=== PATIENT | male | born 2000 | race Caucasian/White ===

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

== ENCOUNTER 2023-09-08 18:46 | Emergency (ER) | payer MEDICAID ==
[~2023-09-08] VITALS: Ht 172.7 cm; Wt 97.5 kg
[2023-09-08 19:31] VITALS: BP_SYST 135; PULSE 79; RESP 22; TEMP 98; O2SAT 97
[2023-09-08] MEDS ORDERED: HYDR-3917 PO (21:05)
[2023-09-08] MEDS ORDERED: IBUP-1971 PO (21:05)
[2023-09-08] MEDS: HYDROcodone/ACETAMIN 10-325 MG TAB PO ONE (21:29)
[2023-09-08] MEDS: IBUPROFEN 800 MG TABLET PO ONE (21:29)
== END 2023-09-08 21:30 | disposition home or self-care (01) ==
LOC: SED 18:46
DX: S53.402A Unspecified sprain of left elbow, initial encounter (principal); Z79.899 Other long term (current) drug therapy; V98.8XXA Other specified transport accidents, initial encounter; Y93.I9 Activity, other involving external motion; Y92.89 Other specified places as the place of occurrence of the external cause; Y99.8 Other external cause status
CPT/HCPCS: 73090; 99283